=== PATIENT | male | born 1975 | race Caucasian/White ===

== ENCOUNTER 2023-01-04 10:59 | Emergency (ER) | payer MEDICAID ==
[~2023-01-04] VITALS: Ht 180.3 cm; Wt 86.2 kg
[2023-01-04 11:16] VITALS: BP 130/88
[2023-01-04] MEDS ORDERED: KETOROLAC 15 MG/ML VIAL IM ONE (12:30)
[2023-01-04] MEDS ORDERED: IBUP-2213 PO (15:15)
== END 2023-01-04 15:21 | disposition home or self-care (01) ==
LOC: MED 10:59
DX: G89.29 Other chronic pain (principal); R07.81 Pleurodynia; R07.89 Other chest pain; F17.210 Nicotine dependence, cigarettes, uncomplicated; Z98.890 Other specified postprocedural states; Z79.1 Long term (current) use of non-steroidal anti-inflammatories (NSAID); Z88.0 Allergy status to penicillin
CPT/HCPCS: 71046; 71100; 96372; 99284; J1885